=== PATIENT | female | born 1965 | race Caucasian/White ===

== ENCOUNTER 2018-07-08 16:44 | Emergency (ER) | payer MEDICAID ==
[~2018-07-08] VITALS: Ht 170.2 cm; Wt 134.0 kg
[~2018-07-08 16:44] MED LIST: ACET-2853 MT; AMLO5TAB88 MT; ASPI-1160 MT; GEMF600T4 PO; GLIP10TA10 MT; LEVO100T9 MT; METF10004 MT; TAMS-11 PO
[2018-07-08] MEDS ORDERED: IBUPROFEN 800MG TABLET PO ONE (18:30)
[2018-07-08] MEDS ORDERED: IBUPROFEN 600MG TABLET PO ONE (18:30)
[2018-07-08] MEDS ORDERED: LIDOCAINE HCL 1% 20ML VIAL (Pyxis) INJ INFIL ONE (18:45)
[2018-07-08] MEDS ORDERED: BACITRACIN ZINC OINT UDPKT TOP ONE (18:45)
[2018-07-08] MEDS ORDERED: LIDOCAINE HCL/PF 1% 10 MG/ML 5ML VIAL IJ SCH (19:00)
[2018-07-08 21:09] VITALS: BP 156/72
== END 2018-07-09 06:03 | disposition home or self-care (01) ==
LOC: ER 16:44
DX: L60.0 Ingrowing nail (principal); E11.9 Type 2 diabetes mellitus without complications; Z79.899 Other long term (current) drug therapy; Z88.8 Allergy status to other drugs, medicaments and biological substances
CPT/HCPCS: 11730; 99283; J3490; Z7610; 12001

== ENCOUNTER 2019-10-06 11:19 | Inpatient (IN) | payer MEDICAID ==
[~2019-10-06] VITALS: Ht 170.2 cm; Wt 129.9 kg
[~2019-10-06 11:19] MED LIST changes: -GEMF600T4 PO; +GEMF600T5 PO; +METF-416 MT; -METF10004 MT
[2019-10-06] MEDS ORDERED: KETOROLAC 30MG/ML VIAL IV ONE (13:45)
[2019-10-06 14:12] LABS: BASOPHILS % 1.4 % (0.0-2.0); EOSINOPHILS % 1.6 % (0.0-5.0); HEMATOCRIT. 42.4 % (36.0-48.0); HEMOGLOBIN. 13.8 g/dL (12.0-16.0); LYMPHOCYTES % 16.3 % (20.0-50.0); MEAN CORPUSCULAR HEMOGLOBIN 28.9 pg (28.0-32.0); MEAN CORPUSCULAR VOLUME 89.2 fL (81.0-99.0); MEAN PLATELET VOLUME 8.7 fl (7.4-10.4); MONOCYTES % 5.6 % (2.0-8.0); NEUTROPHILS % 75.1 % (40.0-76.0); PLATELET 217 x1000/uL (130-400); RED BLOOD CELL COUNT 4.75 mill/uL (4.2-5.4); RED CELL DISTRIBUTION WIDTH 13.2 % (11.6-14.6)
[2019-10-06 14:20] LABS: CHLORIDE 111 mEq/L (98-107)
[2019-10-06 14:31] LABS: CLARITY URINE CLOUDY (CLEAR); COLOR URINE YELLOW (YELLOW); KETONES URINE NEGATIVE (NEGATIVE); LEUKOCYTE ESTERASE URINE 2+ (NEGATIVE); NITRITE URINE NEGATIVE (NEGATIVE); OCCULT BLOOD URINE 3+ (NEGATIVE); PROTEIN URINE 1+ (NEGATIVE); SPECIFIC GRAVITY URINE 1.019 (1.005-1.030); UROBILINOGEN URINE 0.2 E.U./dL (0.2-1.0)
[2019-10-06 15:03] LABS: *AMPHETAMINES SCREEN URINE NEGATIVE (NEGATIVE); *BARBITURATES SCREEN URINE NEGATIVE (NEGATIVE); *BENZODIAZEPINES SCREEN URINE NEGATIVE (NEGATIVE); *COCAINE SCREEN URINE NEGATIVE (NEGATIVE); METHADONE URINE SCREEN NEGATIVE (NEGATIVE); OPIATES URINE SCREEN NEGATIVE (NEGATIVE); PHENCYCLIDINE URINE SCREEN NEGATIVE (NEGATIVE)
[2019-10-06 15:04] LABS: CANNABINOID URINE SCREEN NEGATIVE (NEGATIVE)
[2019-10-06 20:45] VITALS: BP 126/60
[2019-10-06] MEDS ORDERED: ACETAMINOPHEN 325MG TABLET PO PRN (21:15)
[2019-10-06] MEDS ORDERED: CLONIDINE 0.1MG TABLET PO PRN (21:15)
[2019-10-06] MEDS ORDERED: HYDROCODONE/ACETAMINOPHEN 5/325MG TABLET PO PRN (21:15)
[2019-10-06] MEDS ORDERED: MAGNESIUM/ALUMINUM HYDROXIDE/SIMETHICONE 30ML UDC PO PRN (21:15)
[2019-10-06] MEDS ORDERED: ONDANSETRON HCL 4MG/2ML INJ IV PRN (21:15)
[2019-10-06] MEDS ORDERED: LEVOFLOXACIN 500MG PREMIX 100 ML IV SCH (21:15)
[2019-10-06] MEDS ORDERED: DOCUSATE SODIUM 100MG CAPSULE PO PRN (21:15)
[2019-10-06] MEDS: SODIUM CHLORIDE 0.45% 1,000 ML IV SCH (23:59)
[2019-10-06] MEDS: LEVOFLOXACIN 500MG PREMIX 100 ML IV SCH (23:59)
[2019-10-07] VITALS: BP 104/47
[2019-10-07] MEDS ORDERED: SERT100T PO (01:15)
[2019-10-07] MEDS ORDERED: LEVO150T8 PO (01:15)
[2019-10-07] MEDS ORDERED: GABA-290 PO (01:23)
[2019-10-07] MEDS ORDERED: ATOR-2 PO (01:23)
[2019-10-07] MEDS ORDERED: INSLIS SUBCUT (01:23)
[2019-10-07] MEDS ORDERED: BUPR-43 PO (01:23)
[2019-10-07] MEDS ORDERED: INSU100I24 SQ (01:25)
[2019-10-07 03:44] VITALS: BP 131/78
[2019-10-07] MEDS: MORPHINE SULFATE 2 MG/ML CPJ (NOT FOR IM USE) IV PRN ×3 (03:46→21:38)
[2019-10-07 05:41] LABS: EOSINOPHILS % 2.5 % (0.0-5.0); HEMATOCRIT. 38.2 % (36.0-48.0); HEMOGLOBIN. 12.4 g/dL (12.0-16.0); LYMPHOCYTES % 26.9 % (20.0-50.0); MEAN CORPUSCULAR HEMOGLOBIN 29.1 pg (28.0-32.0); MEAN CORPUSCULAR VOLUME 89.2 fL (81.0-99.0); MEAN PLATELET VOLUME 8.7 fl (7.4-10.4); MONOCYTES % 8.3 % (2.0-8.0); NEUTROPHILS % 61.3 % (40.0-76.0); PLATELET 197 x1000/uL (130-400); RED BLOOD CELL COUNT 4.28 mill/uL (4.2-5.4); RED CELL DISTRIBUTION WIDTH 13.4 % (11.6-14.6)
[2019-10-07 06:18] LABS: CHLORIDE 110 mEq/L (98-107)
[2019-10-07 08:00] VITALS: BP 106/60
[2019-10-07] MEDS: LEVOTHYROXINE SODIUM 100MCG TABLET PO SCH (11:26)
[2019-10-07 12:00] VITALS: BP 110/72
[2019-10-07 16:00] VITALS: BP 125/78
[2019-10-07] MEDS: SODIUM CHLORIDE 0.45% 1,000 ML IV SCH (18:53)
[2019-10-07] MEDS ORDERED: DEXTROSE 50% WATER 50ML SYRINGE IV PRN (19:30)
[2019-10-07 20:00] VITALS: BP 136/68
[2019-10-07] MEDS ORDERED: TAMSULOSIN HCL 0.4MG SR CAPSULE PO SCH (21:00)
[2019-10-07] MEDS: BLOOD SUGAR DIAGNOSTIC STRIP TEST SCH (21:22)
[2019-10-07] MEDS: INSULIN LISPRO 100 UNITS/ML SUBCUT SCH (21:30)
[2019-10-08] VITALS: BP 100/59
[2019-10-08] MEDS: LEVOFLOXACIN 500MG PREMIX 100 ML IV SCH (00:11)
[2019-10-08 04:00] VITALS: BP 113/61
[2019-10-08] MEDS: BLOOD SUGAR DIAGNOSTIC STRIP TEST SCH ×2 (05:58→13:09)
[2019-10-08] MEDS: SODIUM CHLORIDE 0.45% 1,000 ML IV SCH (06:22)
[2019-10-08 06:53] LABS: BASOPHILS % 0.5 % (0.0-2.0); HEMATOCRIT. 38.5 % (36.0-48.0); HEMOGLOBIN. 12.7 g/dL (12.0-16.0); LYMPHOCYTES % 22.8 % (20.0-50.0); MEAN CORPUSCULAR HEMOGLOBIN 29.4 pg (28.0-32.0); MEAN PLATELET VOLUME 8.9 fl (7.4-10.4); NEUTROPHILS % 64.7 % (40.0-76.0); PLATELET 190 x1000/uL (130-400); RED BLOOD CELL COUNT 4.32 mill/uL (4.2-5.4); RED CELL DISTRIBUTION WIDTH 13.5 % (11.6-14.6)
[2019-10-08 06:56] LABS: CHLORIDE 110 mEq/L (98-107)
[2019-10-08] MEDS: LEVOTHYROXINE SODIUM 100MCG TABLET PO SCH (08:03)
[2019-10-08 08:05] VITALS: BP 100/41
[2019-10-08] MEDS: INSULIN LISPRO 100 UNITS/ML SUBCUT SCH ×2 (08:34→13:09)
[2019-10-08] MEDS ORDERED: MAGNESIUM OXIDE 400MG TABLET PO SCH (10:15)
[2019-10-08] MEDS ORDERED: LACTULOSE 20G/30ML UDC PO NR (10:15)
[2019-10-08 12:37] VITALS: BP 126/56
[2019-10-08 13:53] VITALS: BP 126/56
[2019-10-08] MEDS ORDERED: LEVOFLOXACIN 500MG TABLET PO SCH (23:00)
== END 2019-10-08 15:06 | disposition home or self-care (01) | DRG 469 ==
LOC: ER 11:19 → 7WST 19:20 → EDBEDREQ 19:25 → ENRESERV 19:50
PROVIDERS: ADMIT Hospitalist; ATTEND Hospitalist
DX: N17.9 Acute kidney failure, unspecified (principal); N10 Acute pyelonephritis; E03.9 Hypothyroidism, unspecified; E11.9 Type 2 diabetes mellitus without complications; F41.9 Anxiety disorder, unspecified; N20.0 Calculus of kidney; I10 Essential (primary) hypertension; Z87.442 Personal history of urinary calculi; Z88.6 Allergy status to analgesic agent; Z87.440 Personal history of urinary (tract) infections
CPT/HCPCS: 36415; 74176; 80305; 81003; 82962; 83735; 85651; 93970; 96365; 99285; J1815; J1885; J1956; J2270